=== PATIENT | female | born 1985 | race Caucasian/White ===

== ENCOUNTER 2017-12-15 15:03 | Emergency (ER) | payer OTHER, SELFPAY ==
[2017-12-15 15:25] VITALS: BP 130/74; PULSE 86; RESP 18; TEMP 37.1; O2SAT 97; BMI 26.5
--- NOTE | 2017-12-15 15:27 | HMH.EDUTC ---
[facility] [place] Disposition Clinical Impression: Burn, eye Qualifiers: Encounter type: initial encounter Laterality: left Qualified Code(s): T26.42XA - Burn of left eye and adnexa, part unspecified, initial encounter Disposition: Home, Self-Care Condition on Discharge: Good Instructions: DI for Eye Flash Burn Additional Instructions: Contact [facility] in am for follow up [phone] Time of Disposition: 16:25 Medical Decision Making - Torey Inquiry Pt receiving controlled substance: No Vital Signs: 12/15/17 15:25 Temperature 98.7 F Temperature Source Oral Pulse Rate [Right Radial] 86 Respiratory Rate 18 Blood Pressure [Right Arm] 130/74 Blood Pressure Mean [Right Arm] 92 Blood Pressure Source [Right Arm] Automatic Cuff Blood Pressure Position [Right Arm] Sitting 02 Sat by Pulse Oximetry 97 Oxygen Delivery Method Room Air Medical Decision Narrative: Visual acuity 20/20 pre and post flushing; eye was flushed for 30 minutes after arrival [facility] [place] HPI - General Stated complaint: WC splashed grease in L eye at work Time Seen by Provider: 12/15/17 15:27 - History of Present Illness Provider Complaint: Hot grease splashed into eye at [employer] approximately 2 pm. Flushed eye with water prior to seeking treatment here. Eye is painful and watery. Onset (ago): hour(s) (1.5) Location: eyes Quality: burning Relieving factors: none Exacerbating factors: none Associated symptoms: denies other symptoms Treatments prior to arrival: other (irrigation) - Related Data Allergies Allergy/AdvReac Type Severity Reaction Status Date / Time promethazine [From Phenergan] Allergy Verified 12/15/17 15:29 [facility] History I have reviewed the patient's past medical history: Yes ROS Obtained: Yes All systems reviewed & no additional complaints - Eyes Eyes: Reports as per HPI, Reports blurry vision, Reports eye pain Physical Exam - General General appearance: alert, in no apparent distress - Head Head exam: atraumatic - Eye Eye exam: Present: normal appearance, other (normal appearance initially; scleral injection after flushing; no blistering) - Expanded Eye Exam Eyelids: left: normal inspection Pupils: Left: regular, round, reactive Sclera/Conjunctival: left: normal inspection - Respiratory Respiratory exam: Present: normal lung sounds bilaterally - Cardiovascular Cardiovascular exam: Present: regular rate, normal rhythm - Neurological Exam Neurological exam: Present: alert, oriented X3 - Psychiatric Psychiatric exam: Present: normal affect, normal mood - Skin Skin exam: Present: warm, dry, intact
--- NOTE | 2017-12-15 15:36 | ED_ITS ---
[facility] [place] Clinical Impression: Burn, eye Qualifiers: Encounter type: initial encounter Laterality: left Qualified Code(s): T26.42XA - Burn of left eye and adnexa, part unspecified, initial encounter Disposition: Home, Self-Care Condition on Discharge: Good Instructions: DI for Eye Flash Burn Additional Instructions: Contact [facility] in am for follow up [phone] Time of Disposition: 16:25 Medical Decision Making - Torey Inquiry Pt receiving controlled substance: No Vital Signs: 12/15/17 15:25 Temperature 98.7 F Temperature Source Oral Pulse Rate [Right Radial] 86 Respiratory Rate 18 Blood Pressure [Right Arm] 130/74 Blood Pressure Mean [Right Arm] 92 Blood Pressure Source [Right Arm] Automatic Cuff Blood Pressure Position [Right Arm] Sitting 02 Sat by Pulse Oximetry 97 Oxygen Delivery Method Room Air Medical Decision Narrative: Visual acuity 20/20 pre and post flushing; eye was flushed for 30 minutes after arrival [facility] [place] - General Stated complaint: WC splashed grease in L eye at work Time Seen by Provider: 12/15/17 15:27 - History of Present Illness Provider Complaint: Hot grease splashed into eye at [employer] approximately 2 pm. Flushed eye with water prior to seeking treatment here. Eye is painful and watery. Onset (ago): hour(s) (1.5) Location: eyes Quality: burning Relieving factors: none Exacerbating factors: none Associated symptoms: denies other symptoms Treatments prior to arrival: other (irrigation) - Related Data Allergies Allergy/AdvReac Type Severity Reaction Status Date / Time promethazine [From Phenergan] Allergy Verified 12/15/17 15:29 [facility] [place] History I have reviewed the patient's past medical history: Yes ROS Obtained: Yes All systems reviewed & no additional complaints - Eyes Eyes: Reports as per HPI, Reports blurry vision, Reports eye pain Physical Exam - General General appearance: alert, in no apparent distress - Head Head exam: atraumatic - Eye Eye exam: Present: normal appearance, other (normal appearance initially; scleral injection after flushing; no blistering) - Expanded Eye Exam Eyelids: left: normal inspection Pupils: Left: regular, round, reactive Sclera/Conjunctival: left: normal inspection - Respiratory Respiratory exam: Present: normal lung sounds bilaterally - Cardiovascular Cardiovascular exam: Present: regular rate, normal rhythm - Neurological Exam Neurological exam: Present: alert, oriented X3 - Psychiatric Psychiatric exam: Present: normal affect, normal mood - Skin Skin exam: Present: warm, dry, intact
--- NOTE | 2017-12-15 16:27 | PC.NURSE ---
PT VISUAL ACUITY WITH NO CORRECTION WITH BOTH EYES 20/15; LEFT EYE 20/20; RIGHT EYE 20/13.
[2017-12-15 16:34] VITALS: BP 125/87; PULSE 80; RESP 18; TEMP 36.9; O2SAT 100
== END 2017-12-15 16:37 | disposition home or self-care (01) ==
PROVIDERS: Emergency Provider Physician Assistant
DX: T26.42XA Burn of left eye and adnexa, part unspecified, initial encounter (principal); X08.8XXA Exposure to other specified smoke, fire and flames, initial encounter; Y92.69 Other specified industrial and construction area as the place of occurrence of the external cause; Y99.0 Civilian activity done for income or pay
CPT/HCPCS: 99201